=== PATIENT | female | born 1965 | race Caucasian/White ===

== ENCOUNTER 2017-03-04 09:37 | Observation (INO) | payer OTHER, MEDICAID ==
[2017-03-04] MEDS ORDERED: ZOFRAN INJ 4 MG VIAL IVP PRN (12:47)
[2017-03-04] MEDS ORDERED: SALINE 3% 15 ML NEB TX ONE (13:20)
[2017-03-04] MEDS ORDERED: SALINE 3% 15 ML NEB TX NEB ONE (13:28)
[2017-03-04 13:29] LABS: BASOPHILS # (AUTO) 0.2 X10^3/uL (0.0-0.1); BASOPHILS % (AUTO) 1.1 % (0.2-1.0); EOSINOPHILS # (AUTO) 0.1 x10^3/uL (0.0-0.2); EOSINOPHILS % (AUTO) 0.3 % (0.9-2.9); HEMATOCRIT 42.8 % (36.0-47.0); HEMOGLOBIN 14.8 g/dL (12.0-16.0); LYMPHOCYTES # (AUTO) 2.3 X10^3/uL (1.3-2.9); LYMPHOCYTES % (AUTO) 13.8 % (21.0-51.0); MEAN CORPUSCULAR HEMOGLOBIN 28.4 pg (27.0-34.0); MEAN CORPUSCULAR HGB CONC 34.5 g/dL (33.0-35.0); MEAN CORPUSCULAR VOLUME 82.3 fL (80.0-100.0); MEAN PLATELET VOLUME 7.7 fL (7.4-11.0); NEUTROPHILS # (AUTO) 13.3 x10^3/uL (2.2-4.8); NEUTROPHILS % (AUTO) 78.8 % (42.0-75.0); PLATELET COUNT 313 X10^3/uL (150.0-450.0); RED CELL DISTRIBUTION WIDTH 14.2 % (11.6-16.5); WHITE BLOOD COUNT 16.9 X10^3/uL (3.6-10.0)
[2017-03-04 13:43] LABS: ALANINE AMINOTRANSFERASE 42 Units/L (12-78); ALBUMIN 3.6 g/dL (3.4-5.0); ALKALINE PHOSPHATASE 109 Units/L (46-116); ASPARTATE AMINO TRANSFERASE 28 Units/L (15-37); BLOOD UREA NITROGEN 7 mg/dL (7-18); CALCIUM 8.9 mg/dL (8.5-10.1); CHLORIDE 98 mmol/L (98-107); COR NA(FOR HYPERGLY) 141 mmol/L (136-145); CREATININE 1.17 mg/dL (0.55-1.02); SODIUM 139 mmol/L (136-145); TOTAL PROTEIN 8.4 g/dL (6.4-8.2); eGFR BLACK RACES > 60 (>60); eGFR NON BLACK RACES 52 (>60)
[2017-03-04 14:11] LABS: AMYLASE 23 Units/L (25-115); CREATINE KINASE 83 Units/L (26-192); LIPASE 98 Units/L (73-393); TROPONIN I < 0.02 ng/mL (0-1.5)
[2017-03-04 14:36] VITALS: BMI 35.8
[2017-03-04 14:37] LABS: CKMB % 1.2 % (<4); CREATINE KINASE MB < 1.0 ng/mL (0-4.0)
--- NOTE | 2017-03-04 14:58 | RAD ---
Examination: Chest, PA and lateral views History: CHF and hypertension, cough and SOB Comparison reference: 09/27/2015 Findings: Continued normal heart size with clear lungs and pleural spaces. Impression: No significant interval change or acute abnormality identified. Reported By:
[2017-03-04] MEDS: PEPCID 20 MG IV PREMIX* 20 MG/50 ML BAG IV SCH ×2 (15:01→20:07)
[2017-03-04] MEDS: NS 1000 ML 1,000 ML IV SCH (15:01)
[2017-03-04] MEDS: PROTONIX INJ 40 MG VIAL IVP SCH (15:02)
[2017-03-04] MEDS: TYLENOL 325 MG TAB PO PRN ×2 (15:14→21:54)
--- NOTE | 2017-03-04 16:40 | DR.UPDATE ---
H&P Update History and Physical Update: WAS SEEN IN THE OFFICE TODAY. A H&P WAS COMPLETED PRIOR TO ADMISSION. PATIENT HAS BEEN SEEN AND EXAMINED WITH NO CHANGES NOTED TO H&P. Changes noted: NO Yes with the following:
[2017-03-04 16:54] LABS: APPEARANCE,URINE CLEAR (CLEAR); BLOOD/HEMOGLOBIN,URINE NEGATIVE (NEGATIVE); COLOR,URINE YELLOW (YELLOW); GLUCOSE, URINE NEGATIVE (NEGATIVE); KETONES,URINE NEGATIVE (NEGATIVE); NITRITES,URINE NEGATIVE (NEGATIVE); PROTEIN,URINE 1+ (NEGATIVE)
[2017-03-04 16:55] LABS: AMORPHOUS SEDIMENT,UR 1+ /HPF (NEGATIVE); BACTERIA,URINE 2+ /HPF (NEGATIVE); BILIRUBIN,URINE NEGATIVE (NEGATIVE); LEUKOCYTE ESTERASE ,URINE NEGATIVE (NEGATIVE); MUCUS,URINE FEW /HPF (NEGATIVE); RBC,URINE 0-2 /HPF (NEGATIVE); SQUAMOUS EPITHELIAL CELL,UR MODERATE /HPF (NEGATIVE); UROBILINOGEN,URINE NORMAL (NORMAL)
[2017-03-04] MEDS ORDERED: XANAX PO PRN (17:00)
[2017-03-04] MEDS ORDERED: MAGNESIUM SULFATE 1 GM/100 mL PREMIX 1 GM/100 ML BAG IV PRN (17:41)
[2017-03-04] MEDS ORDERED: K-LYTE EFFERVESCENT PO PRN (17:41)
[2017-03-04] MEDS ORDERED: POTASSIUM CHLORIDE LIQ 20 MEQ UDC PO PRN (17:41)
[2017-03-04] MEDS ORDERED: POTASSIUM CHL 40 MEQ/NS 0.45% 500 ML IV PRN (17:41)
[2017-03-04] MEDS ORDERED: K-RIDER 10 MEQ/NS 100 ML 10 MEQ/100 ML BAG IV PRN (17:41)
[2017-03-04] MEDS ORDERED: POTASSIUM CHL 60 MEQ/NS 0.45% 500 ML IV PRN (17:41)
[2017-03-04] MEDS ORDERED: MAG-OX TAB PO PRN (17:41)
[2017-03-04 17:59] LABS: CKMB % 1.2 % (<4); CREATINE KINASE 81 Units/L (26-192); CREATINE KINASE MB < 1.0 ng/mL (0-4.0); TROPONIN I < 0.02 ng/mL (0-1.5)
[2017-03-04] MEDS: ZANTAC PO SCH (20:05)
[2017-03-04] MEDS: LASIX PO SCH (20:11)
[2017-03-04] MEDS: CATAPRES TAB 0.2 MG PO SCH (20:11)
[2017-03-04] MEDS: NEURONTIN CAP 300 MG PO SCH (21:53)
[2017-03-04 22:06] LABS: CKMB % 1.1 % (<4); CREATINE KINASE 94 Units/L (26-192); CREATINE KINASE MB < 1.0 ng/mL (0-4.0); TROPONIN I < 0.02 ng/mL (0-1.5)
[2017-03-05] MEDS: TYLENOL 325 MG TAB PO PRN (02:11)
[2017-03-05 05:39] LABS: BASOPHILS # (AUTO) 0.1 X10^3/uL (0.0-0.1); BASOPHILS % (AUTO) 0.6 % (0.2-1.0); EOSINOPHILS # (AUTO) 0.2 x10^3/uL (0.0-0.2); EOSINOPHILS % (AUTO) 1.5 % (0.9-2.9); HEMATOCRIT 38.1 % (36.0-47.0); HEMOGLOBIN 13.2 g/dL (12.0-16.0); LYMPHOCYTES # (AUTO) 2.7 X10^3/uL (1.3-2.9); LYMPHOCYTES % (AUTO) 18.7 % (21.0-51.0); MEAN CORPUSCULAR HEMOGLOBIN 28.8 pg (27.0-34.0); MEAN CORPUSCULAR HGB CONC 34.6 g/dL (33.0-35.0); MEAN CORPUSCULAR VOLUME 83.2 fL (80.0-100.0); MEAN PLATELET VOLUME 8.1 fL (7.4-11.0); MONOCYTES # (AUTO) 1.2 x10^3/uL (0.3-0.8); NEUTROPHILS # (AUTO) 10.4 x10^3/uL (2.2-4.8); NEUTROPHILS % (AUTO) 71.2 % (42.0-75.0); PLATELET COUNT 287 X10^3/uL (150.0-450.0); RED BLOOD COUNT 4.58 X10^6/uL (3.5-5.4); RED CELL DISTRIBUTION WIDTH 14.7 % (11.6-16.5); WHITE BLOOD COUNT 14.6 X10^3/uL (3.6-10.0)
[2017-03-05 05:49] LABS: ALANINE AMINOTRANSFERASE 32 Units/L (12-78); ALBUMIN 3.1 g/dL (3.4-5.0); ALKALINE PHOSPHATASE 91 Units/L (46-116); ASPARTATE AMINO TRANSFERASE 22 Units/L (15-37); BLOOD UREA NITROGEN 11 mg/dL (7-18); CALCIUM 8.1 mg/dL (8.5-10.1); CARBON DIOXIDE 29.4 mmol/L (21-32); CHLORIDE 102 mmol/L (98-107); COR CA(FOR HYPOALB) 8.8 mg/dL (8.5-10.1); COR NA(FOR HYPERGLY) 141 mmol/L (136-145); CREATININE 1.17 mg/dL (0.55-1.02); MAGNESIUM 1.7 mg/dL (1.7-2.9); SODIUM 140 mmol/L (136-145); TOTAL PROTEIN 7.4 g/dL (6.4-8.2); eGFR BLACK RACES > 60 (>60); eGFR NON BLACK RACES 52 (>60)
[2017-03-05] MEDS: NS 1000 ML 1,000 ML IV SCH (05:49)
[2017-03-05] MEDS: NEURONTIN CAP 300 MG PO SCH ×3 (05:51→21:49)
[2017-03-05] MEDS ORDERED: ZOLOFT PO ONE (08:48)
[2017-03-05] MEDS: PEPCID 20 MG IV PREMIX* 20 MG/50 ML BAG IV SCH ×2 (09:19→21:56)
[2017-03-05] MEDS: PROTONIX INJ 40 MG VIAL IVP SCH (09:20)
[2017-03-05] MEDS: CIPRO IV 400 MG PREMIX* 400 MG/200 ML IV.SOLN. IV SCH ×2 (12:32→21:55)
[2017-03-05] MEDS: TOPROL XL PO SCH (14:07)
[2017-03-05] MEDS: DIOVAN TAB 160 MG PO SCH (14:07)
[2017-03-05] MEDS: ZANTAC PO SCH ×2 (14:07→21:49)
[2017-03-05] MEDS: LIPITOR TAB 40 MG PO SCH (14:08)
[2017-03-05] MEDS: HYDROCHLOROTHIAZIDE 25 MG TAB PO SCH (14:08)
[2017-03-05] MEDS: LASIX PO SCH ×2 (14:08→21:49)
[2017-03-05] MEDS: MICRO K EXTEN CAP 10 MEQ PO SCH (14:23)
[2017-03-05] MEDS: SYNTHROID 75 mcg TAB PO SCH (14:23)
[2017-03-05] MEDS: ZOLOFT PO SCH (14:23)
[2017-03-05] MEDS: CATAPRES TAB 0.2 MG PO SCH (14:23)
[2017-03-05] MEDS: TORADOL 15 MG VIAL IVP SCH ×3 (14:24→22:00)
[2017-03-05] MEDS: LEVSIN/MAALOX/LIDOC VISC PO SCH ×4 (14:24→21:52)
[2017-03-05] MEDS ORDERED: POTASSIUM CHLORIDE LIQ 20 MEQ UDC PO ONE (15:00)
--- NOTE | 2017-03-05 15:41 | US ---
HISTORY: Abdominal pain Study: Right upper quadrant abdominal ultrasound Comparison: None Technique: Multiple escobedo scale and color flow Doppler images of the right upper quadrant were obtaine d. Findings: The liver is normal in echotexture without focal lesion. The gallbladder is normal without cholelithi asis, biliary sludge, wall thickening/edema or pericholecystic fluid. The common bile duct is normal in caliber, measuring 5.5 mm. There is a simple appearing 2.6 cm cyst within the right kidney, which is otherwise normal in size and echogenicity, measuring 12.2 x 6.3 x 5.3 cm. No nephrolithiasis, mass , hydronephrosis or perirenal fluid collection of the right kidney is identified. Visualized portions of the pancreas are grossly unremarkable. IMPRESSION: Small simple appearing right renal cyst. Otherwise, unremarkable examination of the right upper quadr ant. Reported By:
--- NOTE | 2017-03-05 21:05 | PCM.PROG ---
Progress Note - Progress Note for Day of Date: 03/05/17 - Subjective Subjective: WAS ADMITTED FOR CHEST PAIN, N/V, AND HTN. TODAY, SHE IS ALERT AND ORIENTED, LYING IN BED ON MORNING ROUNDS. SHE CONTINUES WITH COMPLAINTS OF NAUSEA AND COUGH, BUT DENIES VOMITING. SHE IS ALSO NOTED WITH COMPLAINTS OF RIGHT AND LEFT UPPER QUADRANT PAIN AND A SORE THROAT. ON EXAMINATION, HEART IS NORMAL IN RATE AND RHYTHM. LUNGS ARE CLEAR TO AUSCULATION. ABDOMEN IS ROUND, SOFT, AND NOTED WITH TENDERNESS TO THE RUQ AND LUQ ON PALPATION. HYPERACTIVE BOWEL SOUNDS ARE NOTED IN ALL QUADRANTS. THERE IS GOOD RANGE OF MOTION NOTED TO ALL EXTREMITIES. HER VITAL SIGNS THIS MORNING ARE 97.8-55-20-97%-113/64. ABNORMAL LAB VALUES INCLUDE THE FOLLOWING: WBC 14.6, POTASSIUM 2.9, CREATININE 1.17, GFR 52, GLUCOSE 145, CALCIUM 8.1, ALBUMIN 3.1, A /G RATIO 0.7. H-PYLORI POSITIVE. STREPTOCOCCUS SCREEN NEGATIVE. A SPUTUM CULTURE WAS COLLECTED ON ADMISSION. GRAM STAIN INDICATES MODERATED GROWTH OF GRAM POSITIVE COCCI AND WHITE BLOOD CELLS. BLOOD CULTURES AND THROAT CULTURE ARE PENDING. MOST RECENT EKG REPORTS SINUS RHYTHM WITH HR 67. TODAY, WE PLAN TO OBTAIN A GALLBLADDER ULTRASOUND. WE WILL START GI COCKTAIL 15ML PO QID, TORADOL 15MG IV Q6H, AND CIPRO 400MG IV Q12H. OTHERWISE, WE WILL CONTINUE WITH CURRENT PLAN OF CARE. WE WILL FOLLOW UP WITH AM LABS AND CONTINUE TO MONITOR PATIENT. - Past Medical Family Social History Past Med/Fam/Surg Hx: No changes since H&P Allergies: Allergies ceftriaxone [From Rocephin] Allergy (Verified 03/04/17 11:31) lisinopril Allergy (Verified 03/04/17 11:32) IVP DYE Allergy (Uncoded 03/04/17 11:32) - Review of Systems ROS: No change since H&P - Vital Signs and I&O's Vital Signs: Temperature 98.1 F Pulse Rate [Left Brachial] 59 Pulse Rate [Right Brachial] 55 Respiratory Rate 20 Blood Pressure [Right Arm] 105/59 Blood Pressure [Left Arm] 187/94 Blood Pressure 125/67 O2 Sat by Pulse Oximetry 91 Intake and Output: Intake & Output 03/03/17 03/04/17 03/05/17 03/06/17 11:59 11:59 11:59 11:59 Intake Total 540 360 Output Total 0 Balance 540 360 - Physical Exam Oriented: Normal Eyes: Normal. negative: Blurred Vision, Diplopia, Discharge, Pain, Redness, Photophobia, Other Ear: Normal. negative: Right, Left, Swelling, Ecchymosis, Hemotypanum, Abrasion , Laceration Nose: Normal. negative: Injected, Discharge, Blood, Other Throat: Dry Respiratory: Normal Cardiovascular: Normal. negative: Tachycardia, Bradycardia, Murmur, Edema : Normal. negative: Dysuria, Hematuria, Frequency, Discharge, Testicular Pain , Bleeding, , Other Auscultation: Bowel Sounds: Increased Palpation: Normal Tenderness: RUQ, LUQ. negative: Rebound, Guarding, Rigidity Skin: Normal Musculoskeletal: Normal Psychiatric: Normal. negative: Anxiety, Depression, Agitation, Other Mood Description: Calm Affect: Normal Speech Pattern: Clear, Appropriate - Laboratory and Diagnostics Result Diagrams: 03/05/17 04:15 03/05/17 19:15 Labs: 03/04/17 15:28 Throat Throat Culture - Preliminary 03/04/17 13:53 Sputum - Expectorated Sputum Sputum Culture - Preliminary 03/04/17 13:53 Sputum - Expectorated Sputum - Final Laboratory WBC 14.6 X10^3/uL (3.6-10.0) H 03/05/17 04:15 RBC 4.58 X10^6/uL (3.5-5.4) 03/05/17 04:15 Hgb 13.2 g/dL (12.0-16.0) 03/05/17 04:15 Hct 38.1 % (36.0-47.0) 03/05/17 04:15 MCV 83.2 fL (80.0-100.0) 03/05/17 04:15 MCH 28.8 pg (27.0-34.0) 03/05/17 04:15 MCHC 34.6 g/dL (33.0-35.0) 03/05/17 04:15 RDW 14.7 % (11.6-16.5) 03/05/17 04:15 Plt Count 287 X10^3/uL (150.0-450.0) 03/05/17 04:15 MPV 8.1 fL (7.4-11.0) 03/05/17 04:15 Neut % 71.2 % (42.0-75.0) 03/05/17 04:15 Lymph % 18.7 % (21.0-51.0) L 03/05/17 04:15 [place] % 8.0 % (0.0-13.0) 03/05/17 04:15 Eos % 1.5 % (0.9-2.9) 03/05/17 04:15 Baso % 0.6 % (0.2-1.0) 03/05/17 04:15 Neut # 10.4 x10^3/uL (2.2-4.8) H 03/05/17 04:15 Lymph # 2.7 X10^3/uL (1.3-2.9) 03/05/17 04:15 [place] # 1.2 x10^3/uL (0.3-0.8) H 03/05/17 04:15 Eos # 0.2 x10^3/uL (0.0-0.2) 03/05/17 04:15 Baso # 0.1 X10^3/uL (0.0-0.1) 03/05/17 04:15 Absolute Nucleated RBC 0.0 /100WBC 03/05/17 04:15 Sodium 140 mmol/L (136-145) 03/05/17 04:15 Corrected Sodium 141 mmol/L (136-145) 03/05/17 04:15 Potassium 3.8 mmol/L (3.5-5.1) 03/05/17 19:15 Chloride 102 mmol/L (98-107) 03/05/17 04:15 Carbon Dioxide 29.4 mmol/L (21-32) 03/05/17 04:15 BUN 11 mg/dL (7-18) 03/05/17 04:15 Creatinine 1.17 mg/dL (0.55-1.02) H 03/05/17 04:15 Est GFR (MDRD) Af Amer > 60 (>60) 03/05/17 04:15 Est GFR (MDRD) Non-Af 52 (>60) L 03/05/17 04:15 Glucose 145 mg/dL (65-99) H 03/05/17 04:15 Calcium 8.1 mg/dL (8.5-10.1) L 03/05/17 04:15 Corrected Calcium 8.8 mg/dL (8.5-10.1) 03/05/17 04:15 Magnesium 1.7 mg/dL (1.7-2.9) 03/05/17 04:15 Total Bilirubin 1.00 mg/dL (0.2-1.0) 03/05/17 04:15 AST 22 Units/L (15-37) 03/05/17 04:15 ALT 32 Units/L (12-78) 03/05/17 04:15 Alkaline Phosphatase 91 Units/L (46-116) 03/05/17 04:15 Creatine Kinase 94 Units/L (26-192) 03/04/17 19:23 CK-MB (CK-2) < 1.0 ng/mL (0-4.0) 03/04/17 19:23 CK/CKMB % Calc 1.1 % (<4) 03/04/17 19:23 Troponin I < 0.02 ng/mL (0-1.5) 03/04/17 19:23 Total Protein 7.4 g/dL (6.4-8.2) 03/05/17 04:15 Albumin 3.1 g/dL (3.4-5.0) L 03/05/17 04:15 Globulin 4.3 g/dL (2.5-4.5) 03/05/17 04:15 Albumin/Globulin Ratio 0.7 Ratio (1.1-2.1) L 03/05/17 04:15 Amylase 23 Units/L (25-115) L 03/04/17 13:10 Lipase 98 Units/L (73-393) 03/04/17 13:10 Specimen Type Clean catch urine 03/04/17 16:22 Urine Color Yellow (YELLOW) 03/04/17 16:22 Urine Appearance Clear (CLEAR) 03/04/17 16:22 Urine pH 6.0 (5.0 - 8.0) 03/04/17 16:22 Ur Specific [place] 1.015 (1.000-1.030) 03/04/17 16:22 Urine Protein 1+ (NEGATIVE) 03/04/17 16:22 Urine Glucose (UA) Negative (NEGATIVE) 03/04/17 16:22 Urine Ketones Negative (NEGATIVE) 03/04/17 16:22 Urine Occult Blood Negative (NEGATIVE) 03/04/17 16:22 Urine Nitrite Negative (NEGATIVE) 03/04/17 16:22 Urine Bilirubin Negative (NEGATIVE) 03/04/17 16:22 Urine Urobilinogen Normal (NORMAL) 03/04/17 16:22 Ur Leukocyte Esterase Negative (NEGATIVE) 03/04/17 16:22 Urine RBC 0-2 /HPF (NEGATIVE) 03/04/17 16:22 Urine WBC None seen /HPF (NEGATIVE) 03/04/17 16:22 Ur Squamous Epith Cells Moderate /HPF (NEGATIVE) 03/04/17 16:22 Amorphous Sediment 1+ /HPF (NEGATIVE) 03/04/17 16:22 Urine Bacteria 2+ /HPF (NEGATIVE) 03/04/17 16:22 Urine Mucus Few /HPF (NEGATIVE) 03/04/17 16:22 Ur Culture Indicated? No/not indicated 03/04/17 16:22 H. pylori IgG Antibody Positive (NEGATIVE) A 03/04/17 13:10 Streptococcus Screen Negative (NEGATIVE) 03/04/17 15:28 - Plan (1) Nausea & vomiting Status: Acute Qualifiers: Vomiting type: unspecified Vomiting Intractability: non-intractable Qualified Code(s): R11.2 - Nausea with vomiting, unspecified
[2017-03-06] MEDS: CATAPRES TAB 0.2 MG PO SCH ×2 (00:51→09:35)
[2017-03-06 05:07] LABS: BASOPHILS # (AUTO) 0.1 X10^3/uL (0.0-0.1); BASOPHILS % (AUTO) 0.9 % (0.2-1.0); EOSINOPHILS # (AUTO) 0.6 x10^3/uL (0.0-0.2); EOSINOPHILS % (AUTO) 6.6 % (0.9-2.9); HEMOGLOBIN 12.2 g/dL (12.0-16.0); LYMPHOCYTES # (AUTO) 2.8 X10^3/uL (1.3-2.9); LYMPHOCYTES % (AUTO) 33.2 % (21.0-51.0); MEAN CORPUSCULAR HEMOGLOBIN 28.9 pg (27.0-34.0); MEAN CORPUSCULAR HGB CONC 34.7 g/dL (33.0-35.0); MEAN CORPUSCULAR VOLUME 83.2 fL (80.0-100.0); MEAN PLATELET VOLUME 8.1 fL (7.4-11.0); MONOCYTES # (AUTO) 0.7 x10^3/uL (0.3-0.8); MONOCYTES % (AUTO) 8.6 % (0.0-13.0); NEUTROPHILS # (AUTO) 4.3 x10^3/uL (2.2-4.8); NEUTROPHILS % (AUTO) 50.7 % (42.0-75.0); PLATELET COUNT 237 X10^3/uL (150.0-450.0); RED BLOOD COUNT 4.21 X10^6/uL (3.5-5.4); RED CELL DISTRIBUTION WIDTH 14.5 % (11.6-16.5); WHITE BLOOD COUNT 8.5 X10^3/uL (3.6-10.0)
[2017-03-06 05:37] LABS: ALANINE AMINOTRANSFERASE 30 Units/L (12-78); ALBUMIN 2.7 g/dL (3.4-5.0); ALKALINE PHOSPHATASE 80 Units/L (46-116); ASPARTATE AMINO TRANSFERASE 25 Units/L (15-37); BLOOD UREA NITROGEN 13 mg/dL (7-18); CARBON DIOXIDE 27.4 mmol/L (21-32); CHLORIDE 104 mmol/L (98-107); COR NA(FOR HYPERGLY) 142 mmol/L (136-145); CREATININE 1.06 mg/dL (0.55-1.02); SODIUM 140 mmol/L (136-145); TOTAL PROTEIN 6.5 g/dL (6.4-8.2); eGFR BLACK RACES > 60 (>60); eGFR NON BLACK RACES 59 (>60)
[2017-03-06] MEDS: TORADOL 15 MG VIAL IVP SCH ×3 (05:55→11:07)
[2017-03-06] MEDS: NEURONTIN CAP 300 MG PO SCH ×3 (05:55→09:36)
[2017-03-06] MEDS: NS 1000 ML 1,000 ML IV SCH (07:54)
[2017-03-06] MEDS ORDERED: ZOLOFT PO ONE (08:20)
[2017-03-06] MEDS: TOPROL XL PO SCH (09:33)
[2017-03-06] MEDS: SYNTHROID 75 mcg TAB PO SCH (09:33)
[2017-03-06] MEDS: MICRO K EXTEN CAP 10 MEQ PO SCH (09:34)
[2017-03-06] MEDS: HYDROCHLOROTHIAZIDE 25 MG TAB PO SCH (09:35)
[2017-03-06] MEDS: ZOLOFT PO SCH (09:35)
[2017-03-06] MEDS: ZANTAC PO SCH (09:36)
[2017-03-06] MEDS: LIPITOR TAB 40 MG PO SCH (09:36)
[2017-03-06] MEDS: LASIX PO SCH (09:36)
[2017-03-06] MEDS: CIPRO IV 400 MG PREMIX* 400 MG/200 ML IV.SOLN. IV SCH (09:37)
[2017-03-06] MEDS: PROTONIX INJ 40 MG VIAL IVP SCH (09:37)
[2017-03-06] MEDS: LEVSIN/MAALOX/LIDOC VISC PO SCH ×2 (09:37→13:05)
[2017-03-06] MEDS: DIOVAN TAB 160 MG PO SCH (09:38)
[2017-03-06] MEDS: PEPCID 20 MG IV PREMIX* 20 MG/50 ML BAG IV SCH (09:38)
[2017-03-06 10:24] VITALS: BP 115/62
== END 2017-03-06 13:05 | disposition home or self-care (01) | DRG 313 ==
LOC: MED/SURG 09:37 → UNDOADMOB 09:37 → MED/SURG 10:48
PROVIDERS: ADMIT Internal Medicine; ATTEND Internal Medicine
DX: R07.9 Chest pain, unspecified (principal); R11.2 Nausea with vomiting, unspecified; R94.31 Abnormal electrocardiogram [ECG] [EKG]; I10 Essential (primary) hypertension; B96.81 Helicobacter pylori [H. pylori] as the cause of diseases classified elsewhere
CPT/HCPCS: 36415; 71020; 76705; 80053; 81001; 82150; 82550; 82553; 83690; 83735; 84132; 84484; 85025; 86677; 87040; 87070; 87077; 87186; 87205; 87880; 93005; 94640; 94760; A4216; A4222; C9113; S0028; G0378; J0744; J2405